=== PATIENT | male | born 2005 | race Caucasian/White ===

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

== ENCOUNTER 2024-02-05 12:25 | Emergency (ER) | payer MEDICAID, SELFPAY ==
[2024-02-05 12:37] VITALS: BP 131/74; PULSE 65; RESP 18; TEMP 37; O2SAT 98; BMI 20.5
--- NOTE | 2024-02-05 12:41 | ED.SKABFB ---
HPI - Skin/Abscess/Foreign Bdy General Chief complaint: Skin/Abscess/Foreign Body Stated complaint: LT pointer finger pain/swelling Time Seen by Provider: 02/05/24 12:41 Source: patient, RN notes reviewed and old records reviewed Mode of arrival: ambulatory History of Present Illness ED Provider: Rachael Lane PA-C HPI narrative: 18-year-old male with no significant past medical history presenting to ED complaining of left index finger pain and swelling since yesterday. Admits to doing warm soaks at home without relief. Denies drainage from area, fever, trauma Related Data Previous Rx's ?Medication ?Instructions ?Recorded polyethylene glycol 3350 17 17 g PO DAILY PRN constipation 5 01/07/22 gram/dose oral powder (Miralax) days #119 grams cephalexin 500 mg capsule 500 mg PO QID 7 days #28 caps 02/05/24 Allergies Allergy/AdvReac Type Severity Reaction Status Date / Time No Known Allergies Allergy Verified 02/05/24 12:38 Review of Systems Review of Systems: Constitutional: No Fever, No Chills Cardiovascular: No Chest Pain, No SOB Respiratory: No Cough, No Sputum, No Wheezing Musculoskeletal: + joint pain, No Myalgias, No Joint Swelling Skin: + Skin Lesions, No rash Neuro: No Weakness, No Numbness, No Paresthesias Yes all other systems are reviewed and are negative Constitutional: Constitutional: Reports as per [facility] Past Medical History Attestation statement: The following information was validated with the patient. Source: old records reviewed Social History Social History Advance Directives: No Advance Directives Information Provided: Yes Physical Exam Vital Signs: Vital Signs: Last Vital Signs Temp 98.6 F 02/05/24 12:37 Pulse 65 02/05/24 12:37 Resp 18 02/05/24 12:37 BP 131/74 02/05/24 12:37 Pulse Ox 98 02/05/24 12:37 O2 Del Method Room Air 02/05/24 12:37 BMI result Body Mass Index 20.5 Const: General: cooperative, healthy appearing and no acute distress Orientation/consciousness: patient oriented x3 Limitations: no limitations HEENT: Head: Yes normal to inspection and Yes atraumatic Ears: hearing grossly normal bilaterally General nose exam: Normal external nose present Face and sinus: Yes normal facial exam Eyes: General: appearance normal, both eyes and all related structures EOM: EOMs intact bilaterally Neck: Neck: Yes normal visual inspection and Yes no meningeal signs Resp: Effort & Inspection: normal respiratory effort and no respiratory distress Cardio: Rate: regular rate Skin: Other: + paronychia noted to left index finger with erythema, warmth and fluctuance. Tender to palpation. No crepitus Rashes: no rashes Neuro: General: patient oriented x3, tone normal and no meningeal signs Cranial nerves: Yes CN's II-XII intact bilaterally Gait exam (Neuro): Normal gait present Extrem: General: Yes normal to inspection Medical Decision Making Medical Decision Making MDM Narrative: 18-year-old male with no significant past medical history presenting to ED complaining of left index finger pain and swelling since yesterday. On exam vital signs stable, NAD, nontoxic appearing. Paronychia noted to left index finger, drained in ED with pus drainage expressed. Low suspicion for septic joint, fracture Plan: I & D, p.o. antibiotics, PCP follow-up Please refer to course for remaining clinical decision making, interpretation of labs/imaging results, and discussions with consultants and/or family members. Results discussed with patient including worrisome signs and symptoms and strict return precautions, and when to return to the emergency department. They verbalized understanding and feel safe for discharge at this time. Differential Diagnosis Differential Diagnoses: The differential diagnosis associated with the presentation includes As above External Record Review External record reviewed: Inpatient record, Office record, Outpatient record, Prior outpatient labs, Prior outpatient radiology, Primary care record and Outside ED record Tests considered The following testing was considered but not selected: As above Prescription Management I considered prescription management with: Pain Medication and Antibiotic Procedures Abscess I/D Site: hand Side (if applicable): left Technique: incised with blade Sent for culture/gram staining?: No Irrigation: No Packing used?: none Discharge Plan Discharge Clinical Impression: Paronychia of finger Patient Disposition: Home, Self-Care Instructions: Paronychia (ED) Additional Instructions: Your paronychia was drained in the ED Please do warm soaks daily Keflex as an antibiotic please take as prescribed If area becomes increasingly painful, red, swollen, or pain is unbearable return to the ED Prescriptions: New cephalexin 500 mg capsule 500 mg PO QID 7 Days Qty: 28 0RF No Action polyethylene glycol 3350 [Miralax] 17 gram/dose powder 17 g PO DAILY PRN (Reason: constipation) 5 Days Qty: 119 0RF Referrals: Physician,Unknown J [Primary Care Provider] - Print Language: [place]
[2024-02-05 13:06] VITALS: BP 131/74; PULSE 65; RESP 18; TEMP 37; O2SAT 98
== END 2024-02-05 13:08 | disposition home or self-care (01) ==
PROVIDERS: Emergency Provider Emergency Medicine
DX: L03.012 Cellulitis of left finger (principal); M79.645 Pain in left finger(s)
CPT/HCPCS: 10160; 99282; 99284